=== PATIENT | female | born 1960 | race Caucasian/White ===

== ENCOUNTER 2017-05-06 08:51 | Emergency (ER) | payer OTHER, MEDICARE ==
[~2017-05-06] VITALS: Ht 162.6 cm; Wt 68.0 kg
[~2017-05-06 08:51] MED LIST: FISH OIL 1,001000 M2 PO; HAIR, SKIN &66.7 MCG PO; PROTONIX40 M4 PO; TRAMADOL 50 MG50 MG PO; XARELTO15 MG PO; XARELTO20 MG PO
[2017-05-06 09:26] LABS: ABSOLUTE BASOPHILS 0.1 thou/uL (0.0-0.2); ABSOLUTE EOSINOPHILS 0.1 thou/uL (0.0-0.7); ABSOLUTE LYMPHOCYTES 2.9 thou/uL (0.8-5.3); ABSOLUTE MONOCYTES 0.8 thou/uL (0.0-1.2); ABSOLUTE NEUTROPHILS 5.8 thou/uL (1.6-8.1); BASOPHILS 0.8 %; EOSINOPHILS 1.2 %; HEMOGLOBIN 15.4 gm/dL (12.0-15.0); LYMPHOCYTES 30.3 %; MCH 31.3 pg (26.0-34.0); MCHC 34.2 g/dL (28.0-37.0); MCV 91.5 fL (80.0-100.0); MONOCYTES 7.8 %; MPV 8.7 fl. (7.2-11.1); NUCLEATED RBCS 0 /100WBC; PLATELET COUNT* 397 thou/uL (150-400); POLYS 59.9 %; RBC 4.92 mil/uL (4.20-5.00); RDW-CV 13.5 % (10.5-14.5); WBC 9.6 thou/uL (4.0-11.0)
[2017-05-06 09:28] LABS: ANION GAP 7 mmol/L (7-16); BUN 14 mg/dL (7-18); CALCIUM 9.9 mg/dL (8.5-10.1); CHLORIDE 103 mmol/L (98-107); CO2 30 mmol/L (21-32); CREATININE 1.1 mg/dL (0.6-1.3); GLUCOSE 107 mg/dL (70-99); POTASSIUM 3.9 mmol/L (3.5-5.1); SODIUM 140 mmol/L (136-145)
[2017-05-06 09:34] LABS: APTT 33.5 Seconds (25.0-31.3); INR 1.2; PROTIME 11.4 Seconds (9.20-11.50)
[2017-05-06 09:38] LABS: ALBUMIN 3.4 g/dL (3.4-5.0); ALKALINE PHOSPHATASE 116 U/L (46-116); SGOT 28 U/L (15-37); SGPT 39 U/L (30-65); TOTAL BILIRUBIN 0.2 mg/dL (<0.1-1.0); TOTAL PROTEIN 7.4 g/dL (6.4-8.2); TROPONIN-I LEVEL <0.06 ng/mL (<0.06)
[2017-05-06 11:00] VITALS: BP 138/79
--- NOTE | 2017-05-07 14:11 | EKG ---
[place] [address] ELECTROCARDIOGRAM REPORT Name: EUGENEARIAN Room: [facility]#: [id number] Admission: 05/06/17 Attend Phys: Discharge: 05/06/17 Date of : 64 Report #: [id number] THIS REPORT FOR: //name// [facility] ED Test Date: 2017-05-06 Test Time: 09:00:31 Pat Name: ARIAN TA Department: Room: Gender: F Gold Burnisher: Cristiane MAY : 1960 Requested By: Mattie Woodward Order Number: [id number] MD: José Miguel Valentine Measurements Intervals [place] Rate: 68 P: 68 VT: 147 QRS: 59 QRSD: 96 T: 37 QT: 375 QTc: 399 Interpretive Statements Sinus rhythm Atrial premature complex Probable left atrial enlargement Compared to ECG 07/05/2016 07:52:41 Atrial premature complex(es) now present Electronically Signed On 05-07-2017 14:11:44 WEEDER by José Miguel Valentine [email or web address] <ELECTRONICALLY SIGNED> By: José Miguel Valentine MD, [facility] 05/07/17 141 9 9 José Miguel Valentine MD, [facility] /EPI
== END 2017-05-06 11:01 | disposition home or self-care (01) ==
LOC: M.ERS 08:51
PROVIDERS: Personal Emergency Response Attendant
DX: R07.89 Other chest pain (principal); J45.909 Unspecified asthma, uncomplicated; Z88.1 Allergy status to other antibiotic agents; Z88.8 Allergy status to other drugs, medicaments and biological substances

== ENCOUNTER 2017-08-16 18:37 | Emergency (ER) | payer OTHER, MEDICARE ==
[~2017-08-16] VITALS: Ht 162.6 cm; Wt 63.5 kg
[2017-08-16] MEDS ORDERED: BIOTIN1 M1 PO (18:47)
[2017-08-16] MEDS ORDERED: ST. JOSEPH ASPI81 MG PO (18:47)
[2017-08-16 19:16] LABS: ABSOLUTE BASOPHILS 0.1 thou/uL (0.0-0.2); ABSOLUTE EOSINOPHILS 0.1 thou/uL (0.0-0.7); ABSOLUTE LYMPHOCYTES 2.7 thou/uL (0.8-5.3); ABSOLUTE MONOCYTES 0.6 thou/uL (0.0-1.2); ABSOLUTE NEUTROPHILS 5.8 thou/uL (1.6-8.1); BASOPHILS 1.1 %; EOSINOPHILS 0.9 %; HEMATOCRIT 43.3 % (37.0-47.0); HEMOGLOBIN 14.6 gm/dL (12.0-15.0); LYMPHOCYTES 29.1 %; MCH 31.2 pg (26.0-34.0); MCHC 33.7 g/dL (28.0-37.0); MCV 92.4 fL (80.0-100.0); MONOCYTES 6.8 %; MPV 9.1 fl. (7.2-11.1); NUCLEATED RBCS 0 /100WBC; PLATELET COUNT* 336 thou/uL (150-400); POLYS 62.1 %; RBC 4.69 mil/uL (4.20-5.00); RDW-CV 13.7 % (10.5-14.5); WBC 9.3 thou/uL (4.0-11.0)
[2017-08-16 19:24] LABS: ANION GAP 9 mmol/L (7-16); BUN 7 mg/dL (7-18); CALCIUM 9.4 mg/dL (8.5-10.1); CHLORIDE 103 mmol/L (98-107); CO2 28 mmol/L (21-32); GLUCOSE 118 mg/dL (70-99); POTASSIUM 3.9 mmol/L (3.5-5.1); SODIUM 140 mmol/L (136-145)
[2017-08-16 19:27] LABS: APTT 24.7 Seconds (25.0-31.3); PROTIME 9.4 Seconds (9.20-11.50)
[2017-08-16 19:31] LABS: ALBUMIN 3.4 g/dL (3.4-5.0); ALKALINE PHOSPHATASE 91 U/L (46-116); SGOT 32 U/L (15-37); SGPT 45 U/L (30-65); TOTAL BILIRUBIN 0.2 mg/dL (<0.1-1.0); TOTAL PROTEIN 6.7 g/dL (6.4-8.2); TROPONIN-I LEVEL <0.06 ng/mL (<0.06)
[2017-08-16 20:21] VITALS: BP 138/68
--- NOTE | 2017-08-17 14:03 | EKG ---
[place] [address] ELECTROCARDIOGRAM REPORT Name: ARIAN TA Room: [facility]#: [id number] Admission: 08/16/17 Attend Phys: Discharge: 08/16/17 Date of : 64 Report #: [id number] THIS REPORT FOR: //name// [facility] ED Test Date: 2017-08-16 Test Time: 18:42:17 Pat Name: ARIAN TA Department: Room: Gender: F Podiatry Professor: Cristiane HOWARD : 1960 Requested By: Yazmin Allison Order Number: [id number] MD: David Hopkins Measurements Intervals [place] Rate: 61 P: 75 CT: 151 QRS: 61 QRSD: 94 T: 49 QT: 368 QTc: 371 Interpretive Statements Sinus rhythm Compared to ECG 05/06/2017 09:00:31 Atrial premature complex(es) no longer present Electronically Signed On 08-17-2017 14:02:44 CDT by David Hopkins [email or web address] <ELECTRONICALLY SIGNED> By: David Hopkins MD, [facility] 08/17/17 1402 1842 184 David Hopkins MD, FAC /EPI
== END 2017-08-16 20:22 | disposition home or self-care (01) ==
LOC: M.ERS 18:37
PROVIDERS: Nurse Practitioner Family
DX: M79.1 Myalgia (principal); R25.2 Cramp and spasm; Z88.1 Allergy status to other antibiotic agents; Z88.8 Allergy status to other drugs, medicaments and biological substances

== ENCOUNTER 2018-02-14 15:50 | Emergency (ER) | payer OTHER, MEDICARE ==
[~2018-02-14] VITALS: Ht 162.6 cm; Wt 68.0 kg
[~2018-02-14 15:50] MED LIST changes: +BIOTIN1 M1 PO; +ST. JOSEPH ASPI81 MG PO
[2018-02-14 16:04] LABS: ABSOLUTE BASOPHILS 0.1 thou/uL (0.0-0.2); ABSOLUTE EOSINOPHILS 0.2 thou/uL (0.0-0.7); ABSOLUTE LYMPHOCYTES 3.2 thou/uL (0.8-5.3); ABSOLUTE MONOCYTES 0.7 thou/uL (0.0-1.2); ABSOLUTE NEUTROPHILS 4.3 thou/uL (1.6-8.1); BASOPHILS 1.1 %; EOSINOPHILS 2.1 %; HEMATOCRIT 43.8 % (37.0-47.0); LYMPHOCYTES 37.4 %; MCH 31.3 pg (26.0-34.0); MCHC 34.1 g/dL (28.0-37.0); MCV 91.6 fL (80.0-100.0); MONOCYTES 8.4 %; MPV 8.2 fl. (7.2-11.1); NUCLEATED RBCS 0 /100WBC; PLATELET COUNT* 362 thou/uL (150-400); RBC 4.78 mil/uL (4.20-5.00); RDW-CV 13.4 % (10.5-14.5); WBC 8.5 thou/uL (4.0-11.0)
[2018-02-14 16:13] LABS: ANION GAP 7 mmol/L (7-16); BUN 13 mg/dL (7-18); CALCIUM 9.5 mg/dL (8.5-10.1); CHLORIDE 102 mmol/L (98-107); CO2 28 mmol/L (21-32); CREATININE 0.9 mg/dL (0.6-1.3); GLUCOSE 119 mg/dL (70-99); POTASSIUM 3.7 mmol/L (3.5-5.1); SODIUM 137 mmol/L (136-145)
[2018-02-14 16:24] LABS: ALBUMIN 3.2 g/dL (3.4-5.0); ALKALINE PHOSPHATASE 98 U/L (46-116); LIPASE 187 U/L (73-393); MAGNESIUM 1.9 mg/dL (1.8-2.4); NT-PRO BRAIN NAT PEPTIDE 51 pg/mL (<300); SGOT 29 U/L (15-37); SGPT 53 U/L (30-65); TOTAL BILIRUBIN 0.1 mg/dL (<0.1-1.0); TROPONIN-I LEVEL <0.06 ng/mL (<0.06)
[2018-02-14] MEDS ORDERED: CARAFATE 1 GM TA1 G1 PO (16:27)
[2018-02-14] MEDS ORDERED: ZOFRAN ODT4 MG DISSOLVE (16:27)
[2018-02-14 16:31] VITALS: BP 136/95
--- NOTE | 2018-02-15 17:08 | EKG ---
[place] [address] ELECTROCARDIOGRAM REPORT Name: EUGENEARIAN Room: [facility]#: [id number] Admission: 02/14/18 Attend Phys: Discharge: 02/14/18 Date of : 64 Report #: [id number] THIS REPORT FOR: //name// [facility] ED Test Date: 2018-02-14 Test Time: 15:54:46 Pat Name: ARIAN TA Department: Room: Gender: F Remediation Project Engineer: RODOLFO : 1960 Requested By: Lucas Albert Order Number: [id number] : José Miguel Valentine Measurements Intervals [place] Rate: 65 P: 71 TN: 158 QRS: 63 QRSD: 102 T: 51 QT: 383 QTc: 399 Interpretive Statements Sinus rhythm Compared to ECG 08/16/2017 18:42:17 No significant changes Electronically Signed On 02-15-2018 17:07:58 CDT by José Miguel Valentine [email or web address] <ELECTRONICALLY SIGNED> By: José Miguel Valentine MD, [facility] 02/15/18 1707 1554 1554 José Miguel Valentine MD, FACC /EPI
== END 2018-02-14 16:31 | disposition home or self-care (01) ==
LOC: M.ERS 15:50
PROVIDERS: Emergency Medicine Emergency Medical Services
DX: R07.89 Other chest pain (principal); R10.13 Epigastric pain; N80.9 Endometriosis, unspecified; J45.909 Unspecified asthma, uncomplicated; Z88.1 Allergy status to other antibiotic agents; Z88.8 Allergy status to other drugs, medicaments and biological substances; Z98.890 Other specified postprocedural states; Z90.10 Acquired absence of unspecified breast and nipple; Z86.711 Personal history of pulmonary embolism

== ENCOUNTER 2018-07-15 17:32 | Emergency (ER) | payer OTHER, MEDICARE ==
[~2018-07-15] VITALS: Ht 162.6 cm; Wt 68.0 kg
[~2018-07-15 17:32] MED LIST changes: +CARAFATE 1 GM TA1 G1 PO; +ZOFRAN ODT4 MG DISSOLVE
[2018-07-15 18:13] LABS: ABSOLUTE BASOPHILS 0.1 thou/uL (0.0-0.2); ABSOLUTE EOSINOPHILS 0.1 thou/uL (0.0-0.7); ABSOLUTE LYMPHOCYTES 2.8 thou/uL (0.8-5.3); ABSOLUTE MONOCYTES 0.7 thou/uL (0.0-1.2); ABSOLUTE NEUTROPHILS 4.4 thou/uL (1.6-8.1); EOSINOPHILS 0.7 %; HEMATOCRIT 43.2 % (37.0-47.0); HEMOGLOBIN 14.7 gm/dL (12.0-15.0); LYMPHOCYTES 35.3 %; MCH 31.2 pg (26.0-34.0); MCHC 34.1 g/dL (28.0-37.0); MCV 91.6 fL (80.0-100.0); MONOCYTES 8.1 %; MPV 8.8 fl. (7.2-11.1); NUCLEATED RBCS 0 /100WBC; PLATELET COUNT* 340 thou/uL (150-400); POLYS 54.9 %; RBC 4.72 mil/uL (4.20-5.00); RDW-CV 13.4 % (10.5-14.5)
[2018-07-15 18:27] LABS: APTT 25.4 Seconds (25.0-31.3)
[2018-07-15 18:33] LABS: ANION GAP 8 mmol/L (7-16); BUN 12 mg/dL (7-18); CALCIUM 9.5 mg/dL (8.5-10.1); CHLORIDE 104 mmol/L (98-107); CO2 29 mmol/L (21-32); GLUCOSE 108 mg/dL (70-99); POTASSIUM 3.7 mmol/L (3.5-5.1); SODIUM 141 mmol/L (136-145); TROPONIN-I LEVEL <0.06 ng/mL (<0.06)
[2018-07-15 18:37] LABS: ALBUMIN 3.3 g/dL (3.4-5.0); ALKALINE PHOSPHATASE 93 U/L (46-116); CK-MB MASS 1.3 ng/mL (<0.5-3.6); LIPASE 132 U/L (73-393); MAGNESIUM 1.9 mg/dL (1.8-2.4); NT-PRO BRAIN NAT PEPTIDE 32 pg/mL (<300); SGOT 20 U/L (15-37); SGPT 35 U/L (30-65); TOTAL BILIRUBIN 0.2 mg/dL (<0.1-1.0); TOTAL PROTEIN 6.9 g/dL (6.4-8.2)
[2018-07-15] MEDS ORDERED: ACIPHEX 20 MG T20 MG PO (18:39)
[2018-07-15 19:11] VITALS: BP 142/72
--- NOTE | 2018-07-16 17:37 | EKG ---
[place] [address] ELECTROCARDIOGRAM REPORT Name: ARIAN TA Room: [facility]#: [id number] Admission: 07/15/18 Attend Phys: Discharge: 07/15/18 Date of : 64 Report #: [id number] THIS REPORT FOR: //name// [facility] ED Test Date: 2018-07-15 Test Time: 17:38:56 Pat Name: ARIAN TA Department: Room: Gender: F Quantitative Researcher: Cristiane HOWARD : 1960 Requested By: Randall Rowland Order Number: [id number] MD: David Hopkins Measurements Intervals [place] Rate: 79 P: 74 NM: 151 QRS: 63 QRSD: 102 T: 22 QT: 371 QTc: 426 Interpretive Statements Sinus rhythm Baseline wander in lead(s) V2 Compared to ECG 02/14/2018 15:54:46 No significant changes Electronically Signed On 07-16-2018 17:37:31 CDT by David Hopkins [email or web address] <ELECTRONICALLY SIGNED> By: David Hopkins MD, [facility] 07/16/18 1737 1738 1738 David Hopkins MD, FACC /EPI
== END 2018-07-15 19:11 | disposition home or self-care (01) ==
LOC: M.ERS 17:32
PROVIDERS: Emergency Medicine
DX: K21.9 Gastro-esophageal reflux disease without esophagitis (principal); J45.909 Unspecified asthma, uncomplicated; Z98.890 Other specified postprocedural states; Z88.1 Allergy status to other antibiotic agents; Z88.8 Allergy status to other drugs, medicaments and biological substances

== ENCOUNTER 2020-06-03 10:10 | Emergency (ER) | payer OTHER, MEDICARE ==
[~2020-06-03] VITALS: Ht 162.6 cm; Wt 70.8 kg
[~2020-06-03 10:10] MED LIST changes: +ACIPHEX 20 MG T20 MG PO
[2020-06-03 11:04] LABS: ABSOLUTE BASOPHILS 0.1 thou/uL (0.0-0.2); ABSOLUTE LYMPHOCYTES 1.8 thou/uL (0.8-5.3); ABSOLUTE MONOCYTES 0.5 thou/uL (0.0-1.2); ABSOLUTE NEUTROPHILS 3.9 thou/uL (1.6-8.1); BASOPHILS 1.1 %; EOSINOPHILS 0.6 %; HEMOGLOBIN 15.2 gm/dL (12.0-15.0); LYMPHOCYTES 28.7 %; MCH 30.1 pg (26.0-34.0); MCHC 33.1 g/dL (28.0-37.0); MCV 90.8 fL (80.0-100.0); MONOCYTES 7.7 %; MPV 8.8 fl. (7.2-11.1); NUCLEATED RBCS 0 /100WBC; PLATELET COUNT* 304 thou/uL (150-400); POLYS 61.9 %; RBC 5.07 mil/uL (4.20-5.00); RDW-CV 13.3 % (10.5-14.5); WBC 6.4 thou/uL (4.0-11.0)
[2020-06-03 11:16] LABS: APTT 24.2 Seconds (25.0-31.3); PROTIME 10.5 Seconds (9.20-11.50)
[2020-06-03 11:17] LABS: CALCIUM 9.5 mg/dL (8.5-10.1); CREATININE 1.1 mg/dL (0.6-1.3); POTASSIUM 3.6 mmol/L (3.5-5.1)
[2020-06-03 11:27] LABS: ALBUMIN 3.5 g/dL (3.4-5.0); MAGNESIUM 2.1 mg/dL (1.8-2.4); TOTAL BILIRUBIN 0.3 mg/dL (<0.1-1.0); TOTAL PROTEIN 6.9 g/dL (6.4-8.2)
[2020-06-03 11:52] LABS: URINE BILIRUBIN NEGATIVE (Negative); URINE BLOOD NEGATIVE (Negative); URINE CLARITY CLEAR; URINE COLOR YELLOW; URINE GLUCOSE-RANDOM NEGATIVE (Negative); URINE KETONES NEGATIVE (Negative); URINE LEUKOCYTES-REFLEX NEGATIVE (Negative); URINE NITRITE-REFLEX NEGATIVE (Negative); URINE PROTEIN NEGATIVE (Negative); URINE SPECIFIC GRAVITY <= 1.005 (1.005-1.030); URINE UROBILINOGEN 0.2 E.U./dl (0.2-1.0)
--- NOTE | 2020-06-03 14:47 | EKG ---
[place] [address] ELECTROCARDIOGRAM REPORT Name: ARIAN TA Room: [facility]#: [id number] Admission: 06/03/20 Attend Phys: Discharge: Date of : 64 Date of Service: 06/03/20 1110 Report #: [id number] THIS REPORT FOR: //name// [facility] ED Test Date: 2020-06-03 Test Time: 11:10:12 Pat Name: ARIAN TA Department: Room: Gender: F Form Raiser: [facility] : 1960 Requested By: Hellen Mir Order Number: [id number] MD: Rick Farley Measurements Intervals [place] Rate: 58 P: 57 IA: 146 QRS: 58 QRSD: 107 T: 45 QT: 408 QTc: 401 Interpretive Statements Sinus rhythm Compared to ECG 07/15/2018 17:38:56 No significant changes Electronically Signed On 06-03-2020 14:47:16 REGISTRATION SPECIALIST by Rick Farley [email or web address] <ELECTRONICALLY SIGNED> By: Rick Farley MD, [facility] 06/03/20 1447 1110 1110 Rick Farley MD, FAC /EPI
[2020-06-03] MEDS ORDERED: ZANAFLEX4 MG PO (17:10)
[2020-06-03 17:15] VITALS: BP 130/85
[2020-06-04] MEDS ORDERED: ZOFRAN ODT4 MG PO (17:38)
[2020-06-04] MEDS ORDERED: OMEPRAZOLE 20 M20 M1 PO (18:11)
[2020-06-04] MEDS ORDERED: BENTYL 10 MG CA10 M1 PO (18:11)
== END 2020-06-03 17:15 | disposition home or self-care (01) ==
LOC: M.ERS 10:10
PROVIDERS: Nurse Practitioner Family
DX: M54.6 Pain in thoracic spine (principal); M54.2 Cervicalgia; J45.909 Unspecified asthma, uncomplicated; Z88.1 Allergy status to other antibiotic agents; Z88.8 Allergy status to other drugs, medicaments and biological substances; Z98.890 Other specified postprocedural states

== ENCOUNTER 2020-06-04 16:36 | Emergency (ER) | payer OTHER, MEDICARE ==
[~2020-06-04] VITALS: Ht 162.6 cm; Wt 68.0 kg
[~2020-06-04 16:36] MED LIST changes: +ZANAFLEX4 MG PO
[2020-06-04 17:01] LABS: URINE BLOOD NEGATIVE (Negative); URINE CLARITY CLEAR; URINE COLOR YELLOW; URINE GLUCOSE-RANDOM NEGATIVE (Negative); URINE KETONES 2+ (Negative); URINE LEUKOCYTES-REFLEX NEGATIVE (Negative); URINE NITRITE-REFLEX NEGATIVE (Negative); URINE PROTEIN TRACE (Negative); URINE UROBILINOGEN 0.2 E.U./dl (0.2-1.0)
[2020-06-04 17:03] LABS: ICTOTEST (BILI CONFIRMATORY) Negative (Negative); URINE BILIRUBIN 2+ (Negative)
[2020-06-04 17:08] LABS: ABSOLUTE BASOPHILS 0.1 thou/uL (0.0-0.2); ABSOLUTE LYMPHOCYTES 1.5 thou/uL (0.8-5.3); ABSOLUTE MONOCYTES 0.4 thou/uL (0.0-1.2); ABSOLUTE NEUTROPHILS 9.2 thou/uL (1.6-8.1); BASOPHILS 0.5 %; HEMATOCRIT 44.3 % (37.0-47.0); HEMOGLOBIN 14.7 gm/dL (12.0-15.0); LYMPHOCYTES 13.3 %; MCH 29.5 pg (26.0-34.0); MCHC 33.1 g/dL (28.0-37.0); MCV 89.1 fL (80.0-100.0); MONOCYTES 3.8 %; MPV 8.8 fl. (7.2-11.1); NUCLEATED RBCS 0 /100WBC; PLATELET COUNT* 326 thou/uL (150-400); POLYS 82.4 %; RBC 4.97 mil/uL (4.20-5.00); RDW-CV 13.4 % (10.5-14.5); WBC 11.2 thou/uL (4.0-11.0)
[2020-06-04 17:15] LABS: POTASSIUM 3.6 mmol/L (3.5-5.1)
[2020-06-04 17:19] LABS: ALBUMIN 3.7 g/dL (3.4-5.0); TOTAL BILIRUBIN 0.3 mg/dL (<0.1-1.0); TOTAL PROTEIN 6.7 g/dL (6.4-8.2)
[2020-06-04] MEDS ORDERED: ZOFRAN ODT4 MG PO (17:38)
[2020-06-04] MEDS ORDERED: OMEPRAZOLE 20 M20 M1 PO (18:11)
[2020-06-04] MEDS ORDERED: BENTYL 10 MG CA10 M1 PO (18:11)
[2020-06-04 18:23] VITALS: BP 118/63
== END 2020-06-04 18:24 | disposition home or self-care (01) ==
LOC: M.ERS 16:36
PROVIDERS: Nurse Practitioner Family
DX: R19.7 Diarrhea, unspecified (principal); K62.5 Hemorrhage of anus and rectum; J45.909 Unspecified asthma, uncomplicated; K58.9 Irritable bowel syndrome, unspecified; Z88.1 Allergy status to other antibiotic agents; Z88.8 Allergy status to other drugs, medicaments and biological substances; Z98.890 Other specified postprocedural states; Z86.711 Personal history of pulmonary embolism

== ENCOUNTER → 2020-11-15 | Outpatient (CLI) | payer OTHER ==
[~2020-11-15] MED LIST changes: +BENTYL 10 MG CA10 M1 PO; +OMEPRAZOLE 20 M20 M1 PO; +ZOFRAN ODT4 MG PO
== END ==
LOC: M.CT 14:00
PROVIDERS: ATTEND Internal Medicine
DX: Z13.6 Encounter for screening for cardiovascular disorders (principal); J84.10 Pulmonary fibrosis, unspecified; I25.10 Atherosclerotic heart disease of native coronary artery without angina pectoris; D73.89 Other diseases of spleen; J98.4 Other disorders of lung